=== PATIENT | female | born 2000 | race Caucasian/White ===

== ENCOUNTER 2019-08-11 05:12 | Emergency (ER) | payer OTHER, MEDICAID ==
[~2019-08-11] VITALS: Ht 167.6 cm; Wt 68.0 kg
[2019-08-11] MEDS ORDERED: CLARITIN (05:22)
[2019-08-11] MEDS ORDERED: LINZESS (05:22)
[2019-08-11 05:34] LABS: URINE BILIRUBIN NEGATIVE (Negative); URINE BLOOD TRACE (Negative); URINE CLARITY CLEAR; URINE COLOR YELLOW; URINE GLUCOSE-RANDOM NEGATIVE (Negative); URINE KETONES NEGATIVE (Negative); URINE LEUKOCYTES-REFLEX NEGATIVE (Negative); URINE NITRITE-REFLEX NEGATIVE (Negative); URINE PROTEIN TRACE (Negative); URINE SPECIFIC GRAVITY 1.025 (1.005-1.030); URINE UROBILINOGEN 0.2 E.U./dl (0.2-1.0)
[2019-08-11 06:03] LABS: ABSOLUTE LYMPHOCYTES 1.4 thou/uL (0.8-5.3); ABSOLUTE MONOCYTES 0.4 thou/uL (0.0-1.2); ABSOLUTE NEUTROPHILS 4.7 thou/uL (1.6-8.1); BASOPHILS 0.2 %; EOSINOPHILS 0.7 %; HEMATOCRIT 46.4 % (37.0-47.0); HEMOGLOBIN 15.8 gm/dL (12.0-15.0); LYMPHOCYTES 21.9 %; MCH 30.3 pg (26.0-34.0); MCV 89.3 fL (80.0-100.0); MONOCYTES 6.1 %; NUCLEATED RBCS 0 /100WBC; PLATELET COUNT* 282 thou/uL (150-400); POLYS 71.1 %; RDW-CV 13.8 % (10.5-14.5); WBC 6.6 thou/uL (4.0-11.0)
[2019-08-11 06:07] LABS: CALCIUM 9.1 mg/dL (8.5-10.1); CREATININE 0.9 mg/dL (0.6-1.3); POTASSIUM 3.6 mmol/L (3.5-5.1)
[2019-08-11 06:11] LABS: ALBUMIN 3.9 g/dL (3.4-5.0); TOTAL BILIRUBIN 0.6 mg/dL (<0.1-1.0); TOTAL PROTEIN 7.5 g/dL (6.4-8.2)
[2019-08-11] MEDS ORDERED: ZOFRAN ODT4 MG PO (09:00)
[2019-08-11 09:11] VITALS: BP 111/77
== END 2019-08-11 09:13 | disposition home or self-care (01) ==
LOC: M.ERS 05:12
PROVIDERS: Emergency Medicine
DX: K52.9 Noninfective gastroenteritis and colitis, unspecified (principal); R19.7 Diarrhea, unspecified; R10.32 Left lower quadrant pain; R11.10 Vomiting, unspecified